=== PATIENT | female | born 2000 | race Caucasian/White ===

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

== ENCOUNTER 2021-01-18 20:33 | Emergency (ER) | payer OTHER, SELFPAY ==
--- NOTE | 2021-01-18 20:44 | XR_ITS ---
PROCEDURE INFORMATION: Exam: XR Right Knee Exam date and time: 01/18/2021 8:44 PM Age: 20 years old Clinical indication: Injury or trauma; Fall; Blunt trauma; Patient HX: Right knee pain; Additional info: Fall around noon today TECHNIQUE: Imaging protocol: XR Right knee. Views: 3 views. COMPARISON: CR [id number] KNEE-LIMITED 2 VIEWS-RT 05/27/2014 11:20 PM FINDINGS: Bones/joints: Normal. Soft tissues: Normal. IMPRESSION: No acute findings.
[2021-01-18 20:50] VITALS: RESP 18; TEMP 36.9; O2SAT 99; BMI 38.0
--- NOTE | 2021-01-18 21:05 | HMH.EDUTC ---
[facility] [place] Disposition Clinical Impression: Knee sprain Qualifiers: Encounter type: initial encounter Involved ligament of knee: other ligament Laterality: right Qualified Code(s): S83.8X1A - Sprain of other specified parts of right knee, initial encounter Disposition: Home, Self-Care Condition on Discharge: Good Instructions: How To Perform RICE (Rest, Ice, Compress, Elevate) Additional Instructions: *weight bearing as tolerated *RICE, Rest the extremity, Ice 15-20 minutes 3-4 times daily, Compress- wear the herman wrap as discussed as much as possible to help reduce swelling and pain, Elevate the extremity when at rest *Herman wrap/Knee immobilizer is for support and help control swelling, use it except in the shower. Be sure that is not to tight but not to loose either *Elevate when resting *Ibuprofen every 6-8 hours as needed for pain an inflammation. If need something more can take Tylenol in between doses of Ibuprofen to help Immediately follow up with your family doctor for new or worsening of symptoms, or no noticeable improvement over the next 3-5 days Call back to the [facility] for the official reading of your xray Return if needed Straight to ER if any life threatening symptoms Referrals: Scott Kirkpatrick MD [Primary Care Provider] - As needed Time of Disposition: 21:36 Medical Decision Making - Chandler Inquiry Pt receiving controlled substance: No Chandler was queried for this patient: No Vital Signs: 01/18/21 20:50 01/18/21 21:43 Temperature 98.4 F 98 F Temperature Source Oral Pulse Rate 97 H Respiratory Rate 18 19 Blood Pressure 136/69 02 Sat by Pulse Oximetry 99 Oxygen Delivery Method Room Air - Radiology Data #1 Image(s): Knee Image Reviewed: Yes I have reviewed radiologist's interpretation Preliminary Findings: No Fracture Seen [facility] HPI - General Stated complaint: AO fall 1215 injured R knee Time Seen by Provider: 01/18/21 21:05 Mode of Arrival: Ambulatory Source of Information: Patient Limitations: No Limitations Description of Symptoms (Recalled from Triage Doc. by RN): Right knee pain due to fall around noon HEENT Symptoms (Recalled from RN notes): No Resp Symptoms (Recalled from RN notes): No Skin Symptoms (Recalled from RN notes): No MS Symptoms (Recalled from RN notes): Yes Functional Status (Recalled from RN notes): na - History of Present Illness Provider Complaint: Patient state that she was at the [employer] and the side walk was broke off and she didnt see it and as she stepped down she fell and landed in her right knee State that she fell around noon today and she has been having pain ever since States that she has been able to walk on it but hurts with certain ways she moves it - Related Data Home Medications Medication Instructions Recorded Confirmed norgestimate-ethinyl estradioL 1 each PO DAILY 10/10/20 10/10/20 [Shawanda 0.25-0.035 mg Tablet] Allergies Allergy/AdvReac Type Severity Reaction Status Date / Time acetaminophen [From Percocet] AdvReac Gastrointestinal Verified 07/19/19 10:50 Upset escitalopram [From Lexapro] AdvReac Verified 07/19/19 10:50 oxycodone [From Percocet] AdvReac Gastrointestinal Verified 07/19/19 10:50 Upset - Worker's Comp Is this a Worker's Comp case?: No [facility] History - Hepatitis A Screen Drug use history?: No High risk sexual behaviors?: No History of sexually transmitted infection?: No Currently employed?: No Childcare worker?: No Do you have indoor plumbing?: Yes Do you have electricity?: Yes Attestation statement:: This patient has been screened for Hepatitis A risk factors. I have reviewed the patient's past medical history: Yes Medical History: Reports:: Depression Comment: fatty liver, psod Laterality Cases: Bilateral: Other Other Surgeries: Yes: No Previous Surgery. No: Comment: - Social History Smoking Status: Never smoker Alcohol Intake: never Substance Use Type: denies use Occup
[2021-01-18 21:43] VITALS: BP 136/69; PULSE 97; RESP 19; TEMP 36.6
== END 2021-01-18 21:43 | disposition home or self-care (01) ==
PROVIDERS: Emergency Provider Nurse Practitioner; PCP Family Medicine
DX: S83.8X1A Sprain of other specified parts of right knee, initial encounter (principal); W01.0XXA Fall on same level from slipping, tripping and stumbling without subsequent striking against object, initial encounter; Y92.480 Sidewalk as the place of occurrence of the external cause; F33.1 Major depressive disorder, recurrent, moderate; Z88.5 Allergy status to narcotic agent
CPT/HCPCS: 29505; 73562; 99202; G0463

== ENCOUNTER 2021-06-25 15:24 | Emergency (ER) | payer OTHER, SELFPAY ==
[2021-06-25 16:10] VITALS: BP 144/89; PULSE 84; RESP 21; TEMP 37.1; O2SAT 100; BMI 38.9
--- NOTE | 2021-06-25 16:43 | HMH.EDUTC ---
[facility] [place] Clinical Impression: Sinusitis Qualifiers: Sinusitis location: unspecified location Chronicity: unspecified Qualified Code(s): J32.9 - Chronic sinusitis, unspecified Disposition: Home, Self-Care Condition on Discharge: Good Instructions: Sinusitis, DI for Sinusitis, Nausea and Vomiting-Adult, Diarrhea Additional Instructions: *Monitor Temp, Over the counter Motrin or Tylenol as directed/as needed Tylenol every 4 hours and Motrin every 6 hours (as long as your family doctor has told you that you can take it) for fever or pain. and straight to ER if unable to lower temp less than 101.0 after medication given *Warm salt water gargles may help to soothe the throat *Throat Lozenges *Warm fluids like tea with honey may help to soothe the throat *Sleep elevated *Humidifier/Vaporizer Drink extra fluids with and between meals. If you have difficulty drinking, try very small amounts of water or suck on ice chips. ? Avoid fruit juices, as these do not replace minerals and can actually increase diarrhea. ? Children and adults can use sports drinks to replenish electrolytes. Younger children and infants should use products formulated for children, like oral rehydration solutions. ? Eat food in small amounts and let your stomach recover. ? Get lots of rest. You may feel tired or weak. ? No greasy or fried foods for the next 24-48 hours BRAT diet Bananas Rice Apples and [place] ? Make sure to drink plenty of liquids ? Return if needed ? Straight to ER if any life threatening symptoms ? Zofran as prescribed ? Follow up with family doctor in the next 48-72 hours if no improvement or any worsening of symptoms Follow up IMMEDIATELY for new or worsening symptoms or no Noticeable improvement over the next 48-72 hours. 911 for difficulty breathing or swallowing You were tested for today for COVID19 your test result should be back in the next 24-48 hours, you was given handout on how to log onto the [facility] portal to get your results if you have trouble logging on you may call the [facility] You was given a handout with instructions for Self Quarantine and Self isolation for while you wait on test results and what to do if they are positive If you are positive the Health Dept will be contacting you also Make sure to take your Vitamins Vit. C Vit D and Zinc if you can take them Prescriptions: Amoxicillin/Potassium Clav [Augmentin 875-125 Tablet] 1 tab PO Q12H 7 Days #14 tab Transmission Status: Pending to [facility] Fluticasone Propionate [Flonase 50mcg nasal spray 16gm] 1 spr NS DAILY #1 each Transmission Status: Pending to [facility] Ondansetron [Zofran 4mg ODT] 4 mg PO TIDP PRN #10 tab PRN Reason: Nausea Transmission Status: Pending to [facility] Referrals: Scott Kirkpatrick MD [Primary Care Provider] - As needed Forms: Work/School Release Time of Disposition: 16:55 Medical Decision Making - Chandler Inquiry Pt receiving controlled substance: No Chandler was queried for this patient: No Vital Signs: 06/25/21 16:10 Temperature 98.8 F Temperature Source Oral Pulse Rate [Right Brachial] 84 Respiratory Rate 21 Blood Pressure [Right Arm] 144/89 H Blood Pressure Mean [Right Arm] 107 Blood Pressure Source [Right Arm] Automatic Cuff Blood Pressure Position [Right Arm] Sitting 02 Sat by Pulse Oximetry 100 Oxygen Delivery Method Room Air Orders (Tests/Meds): ORDERS Category Date Time Status Covid-19 Nasal PCR ([facility]) Routine Lab 06/25/21 16:35 [place]dered [facility] [place] - General Stated complaint: covid test, weak, V/D, GRIFFITH clarence Time Seen by Provider: 06/25/21 16:43 Mode of Arrival: Ambulatory Source of Information: Patient Limitations: No Limitations Description of Symptoms (Recalled from Triage Doc. by RN): PATIENT C/O NAUSEA, HEADACHE, FATIGUE, DIARRHEA BODY ACHES AND VOMITING X 2 WEEKS HEENT Symptoms (Recalled from RN notes): Yes Resp Symptoms (Recalled from RN notes): No Skin
[2021-06-25 17:06] VITALS: BP 144/89; PULSE 84; RESP 21; TEMP 37.1; O2SAT 100
== END 2021-06-25 17:07 | disposition home or self-care (01) ==
PROVIDERS: Emergency Provider Nurse Practitioner; PCP Family Medicine
DX: Z20.822 Contact with and (suspected) exposure to COVID-19 (principal)
CPT/HCPCS: 99202; C9803; G0463; U0003; U0005

== ENCOUNTER → 2021-09-09 16:56 | Outpatient (CLI) | payer OTHER, SELFPAY | PROVIDERS: Visit Provider Nurse Practitioner Family | DX: Z20.822 Contact with and (suspected) exposure to COVID-19 (principal) | CPT/HCPCS: C9803; U0003; U0005 ==

== ENCOUNTER → 2021-09-16 14:08 | Outpatient (CLI) | payer OTHER, SELFPAY | PROVIDERS: Visit Provider Nurse Practitioner Family | DX: Z20.822 Contact with and (suspected) exposure to COVID-19 (principal) | CPT/HCPCS: C9803; U0003; U0005 ==

== ENCOUNTER → 2021-09-25 13:06 | Outpatient (CLI) | payer OTHER, SELFPAY | PROVIDERS: Visit Provider Nurse Practitioner | DX: Z20.822 Contact with and (suspected) exposure to COVID-19 (principal) | CPT/HCPCS: C9803; U0003; U0005 ==

== ENCOUNTER → 2021-09-27 14:08 | Outpatient (CLI) | payer OTHER, SELFPAY | PROVIDERS: Visit Provider Nurse Practitioner | DX: U07.1 COVID-19 (principal) | CPT/HCPCS: C9803; U0003; U0005 ==

== ENCOUNTER → 2021-12-27 07:44 | Outpatient (CLI) | payer OTHER, SELFPAY | PROVIDERS: Visit Provider Obstetrics & Gynecology | DX: Z34.90 Encounter for supervision of normal pregnancy, unspecified, unspecified trimester (principal); N39.0 Urinary tract infection, site not specified | CPT/HCPCS: 87086 ==

== ENCOUNTER → 2022-01-15 12:52 | Outpatient (CLI) | payer OTHER, SELFPAY ==
--- NOTE | 2022-01-15 12:52 | US_ITS ---
FINAL REPORT CLINICAL HISTORY: US OB COMPLETE 20wk+ Anatomy Scan; obesity FINDINGS: There is a single live intrauterine gestation. Presentation is breech. Placenta is fundal, high, grade 1. movement is noted. Three-vessel cord with satisfactory umbilical cord insertion. Four-chamber heart is noted. Chest and diaphragm are unremarkable. ABDOMEN: Both kidneys are unremarkable. Stomach is unremarkable. SPINE: No anomalies identified. AMNIOTIC FLUID: Appropriate amount. MEASUREMENTS: ULTRASOUND AGE: 20 weeks 2 days. GESTATION AGE: 20 weeks 3 days. ESTIMATED WEIGHT: 344 g GROWTH PERCENTILE: 30% BPD: 4.7 cm corresponding with 20 weeks 2 days. OFD: 6.2 cm corresponding with 20 weeks 6 days. HC: 17.3 cm corresponding with 19 weeks 6 days. AC: 15.1 cm corresponding with 20 weeks 3 days. FL: 3.3 cm corresponding with 20 weeks 3 days. CEREBELLUM: 2.0 cm corresponding with 20 weeks 4 days. HUMERUS: 3.2 cm corresponding with 20 weeks 6 days. NUCH FOLD: 1.8 mm HC/AC: 1.14 CI: 75% FL/BPD: 71% FL/AC: 22% IMPRESSION: Single living IUP with an ultrasound age of 20 weeks 2 days. No gross anomalies noted. Reviewed, Interpreted and Dictated by Jeff Fisher III, MD Transcribed by Julia Bustillo Authenticated by Jeff Fisher III, MD on 01/15/2022 03:25:41 PM [facility]
== END ==
PROVIDERS: Visit Provider Obstetrics & Gynecology
DX: Z36.0 Encounter for antenatal screening for chromosomal anomalies (principal)
CPT/HCPCS: 76811

== ENCOUNTER → 2022-02-01 13:07 | Outpatient (CLI) | payer OTHER, SELFPAY ==
[2022-02-01 14:35] LABS: Chloride 106 mmol/L (98-107); Potassium 4.1 mmoL/L (3.5-5.1); Sodium 136 mmol/L (136-145)
[2022-02-01 14:37] LABS: Alanine Aminotransferase 36 U/L (12-78); Aspartate Amino Transferase 28 U/L (14-36); Blood Urea Nitrogen 4 mg/dl (7-17); Estimated Glomerular Filt Rate 157 ml/min (>60); GFR (African American) 190 ML/MIN (>60)
[2022-02-01 14:38] LABS: Albumin Level 3.6 g/dl (3.5-5.0); Albumin/Globulin Ratio 1.2 (1.1-1.8); Alkaline Phosphatase 103 U/L (38-126); Anion Gap 13.1 mEq/L (5-15); Bilirubin,Total 0.9 mg/dl (0.2-1.3); Calcium 9.5 mg/dl (8.4-10.2); Carbon Dioxide 21 mmol/L (22.0-30.0); Globulin 2.9 g/dL (1.3-3.2); Glucose 82 mg/dl (74-100); Total Protein,Serum 6.5 g/dl (6.3-8.2)
== END ==
PROVIDERS: Visit Provider Obstetrics & Gynecology
DX: Z34.90 Encounter for supervision of normal pregnancy, unspecified, unspecified trimester (principal)
CPT/HCPCS: 36415; 80053

== ENCOUNTER → 2022-03-11 11:22 | Outpatient (CLI) | payer OTHER, SELFPAY ==
[2022-03-11 11:46] LABS: Basophils # 0.1 K/mm3 (0-0.2); Eosinophils # 0.1 K/mm3 (0.0-0.4); Eosinophils % 0.7 % (0.1-12.0); Hematocrit 39.5 % (37.0-47.0); Hemoglobin 12.7 g/dL (12.2-16.2); Lymphocytes # 2.1 K/mm3 (0.7-4.5); Mean Corpuscular Hemoglobin 28.7 pg (27.0-31.2); Mean Corpuscular Volume 89.6 fl (81-99); Mean Platelet Volume 9.2 fl (7.4-10.4); Monocytes # 0.4 K/mm3 (0.1-1.0); Monocytes % 3.1 % (1.7-9.3); Neutrophils % 77.3 % (37.0-80.0); Platelet Count 234 K/mm3 (142-424); Red Blood Count 4.42 M/mm3 (4.20-5.40); Red Cell Distribution Width 14.4 % (11.5-17.5); White Blood Count 11.7 K/mm3 (4.5-13.0)
[2022-03-11 11:51] LABS: Glucose,Fasting 108 mg/dl (74-100)
[2022-03-11 13:17] LABS: Glucose 1 Hour 166 mg/dL (74-100)
== END ==
PROVIDERS: Visit Provider Obstetrics & Gynecology
DX: Z34.90 Encounter for supervision of normal pregnancy, unspecified, unspecified trimester (principal)
CPT/HCPCS: 36415; 82951; 85025

== ENCOUNTER → 2022-03-13 11:48 | Outpatient (CLI) | payer OTHER, SELFPAY ==
[2022-03-13 12:22] LABS: Glucose,Fasting 97 mg/dl (74-100)
[2022-03-13 13:32] LABS: Glucose 1 Hour 174 mg/dL (74-100)
[2022-03-13 14:51] LABS: Glucose 2 Hour 153 mg/dL (74-100)
[2022-03-13 16:22] LABS: Glucose 3 Hour 109 mg/dL (74-100)
== END ==
PROVIDERS: Visit Provider Obstetrics & Gynecology
DX: R73.09 Other abnormal glucose (principal)
CPT/HCPCS: 36415; 82951

== ENCOUNTER → 2022-04-01 12:54 | Outpatient (CLI) | payer OTHER, SELFPAY ==
--- NOTE | 2022-04-01 12:54 | US_ITS ---
FINAL REPORT CLINICAL HISTORY: sga; BPP is 8 FINDINGS: There is a single live intrauterine gestation. Presentation is cephalic. Placenta is fundal, grade 2. movement and practice breathing is seen. Heart rate is 153 beats per minute. AMNIOTIC FLUID: Appropriate amount. EVERT: 10.1 cm MEASUREMENTS: ULTRASOUND AGE: 31 weeks 0 days. GESTATION AGE: 31 weeks 2 days. ESTIMATED WEIGHT: 1615 g GROWTH PERCENTILE: 20% BPD: 7.8 cm corresponding with 31 weeks 1 days. OFD: 10 cm corresponding with 31 weeks 1 days. HC: 28.2 cm corresponding with 31 weeks 0 days. AC: 26.1 cm corresponding with 30 weeks 2 days. FL: 6 cm corresponding with 31 weeks 2 days. HC/AC: 1.08 CI: 77% FL/BPD: 77% FL/AC: 23% IMPRESSION: Single living IUP with an ultrasound age of 31 weeks 0 days. EVERT of 10.1 cm Reviewed, Interpreted and Dictated by Jeff Fisher III, MD Transcribed by Julia Bustillo Authenticated and [facility]
== END ==
PROVIDERS: Visit Provider Obstetrics & Gynecology
DX: O36.5990 Maternal care for other known or suspected poor fetal growth, unspecified trimester, not applicable or unspecified (principal)
CPT/HCPCS: 76816; 76819

== ENCOUNTER 2022-04-03 13:20 | Emergency (ER) | payer OTHER, SELFPAY ==
--- NOTE | 2022-04-03 13:56 | HMH.EDUTC ---
[facility] [place] Clinical Impression: Right foot pain Disposition: Home, Self-Care Condition on Discharge: Good Instructions: Managing Symptoms of , DI for Foot Pain Additional Instructions: Rest the extremity, Elevate the extremity as tolerated while you are resting. Take tylenol for pain. I sent in a prescription to your pharmacy. Follow up with Dr. Hoyt (orthopedics). I put in a referral but you need to call his office and schedule an appointment. Follow up with your regular doctor. Follow up with your research & analytics manager doctor. GO TO THE ER FOR ANY WORSENING SYMPTOMS Referrals: Provider,Referral, MD [Primary Care Provider] - Time of Disposition: 14:30 Medical Decision Making - Medical Records Medical records reviewed: No: I reviewed the patient's medical records. - Chandler Inquiry Pt receiving controlled substance: No Vital Signs: 04/03/22 14:04 04/03/22 14:34 Temperature 97.7 F 97.7 F Temperature Source Oral Oral Pulse Rate 74 Pulse Rate [Left Radial] 77 Respiratory Rate 16 17 Blood Pressure 121/79 Blood Pressure [Right Arm] 127/85 Blood Pressure Mean [Right Arm] 99 02 Sat by Pulse Oximetry 97 Oxygen Delivery Method Room Air Room Air - Lab Data Lab results reviewed: Yes: I reviewed the patient's lab results. [facility] [place] - General Stated complaint: Pain in rt foot Time Seen by Provider: 04/03/22 14:20 - History of Present Illness Provider Complaint: She states that she has been having right foot pain for the past 3 days. She denies any known injury. She is . - Related Data Home Medications Medication Instructions Recorded Confirmed prenat.vits,kenyatta,kew-asho-rijia 1 tab PO DAILY 12/27/21 03/25/22 Allergies Allergy/AdvReac Type Severity Reaction Status Date / Time Fish Containing Products Allergy Severe Hives Verified 03/25/22 13:45 shellfish derived Allergy Mouth Verified 03/25/22 13:45 irritation acetaminophen [From Percocet] AdvReac Gastrointestinal Verified 03/25/22 13:45 Upset escitalopram [From Lexapro] AdvReac Verified 03/25/22 13:45 oxycodone [From Percocet] AdvReac Gastrointestinal Verified 03/25/22 13:45 Upset [facility] History - Hepatitis A Screen Attestation statement:: This patient has been screened for Hepatitis A risk factors. I have reviewed the patient's past medical history: Yes Medical History: Reports:: Depression Comment: Nonalcoholic fatty liver disease, PCOS. lactose intolerant Laterality Cases: Bilateral: Other Other Surgeries: Yes: No Previous Surgery. No: Comment: No previous surgeries - Social History Smoking Status: Never smoker Alcohol Intake: never Substance Use Type: denies use Occupational Status: unemployed Housing: house Household Members: family, children - Psychiatric History Pschychiatric History:: Reports:: Depression Family Hx:: Diabetes, Hypertension, Heart Attack, Coronary Artery Disease, Cancer ROS Obtained: Yes All systems reviewed & no additional complaints - Constitutional Constitutional: Denies chills, Denies fever(s) - Eyes Eyes: Denies eye discharge - ENT Ears, Nose, Mouth, and Throat: Denies dizziness, Denies otalgia, Denies sore throat - Cardiovascular Cardiovascular: Denies chest pain - Musculoskeletal Musculoskeletal: Reports as per HPI - Integumentary/Breasts Skin/Breast: Denies redness, Denies rash, Denies wounds - Neurologic Neurologic: Denies tingling/numbness/burning sensations Physical Exam - General General appearance: alert, in no apparent distress - Head Head exam: atraumatic, normocephalic, normal inspection - Eye Eye exam: Present: normal appearance, PERRL, EOMI - ENT ENT exam: Present: normal exam, normal oropharynx, mucous membranes moist, TM's normal bilaterally, normal external ear exam - Neck Neck exam: Present: normal inspection, full ROM, trachea midline. Absent: meningismus, lymphadenopathy - Chest
[2022-04-03 14:04] VITALS: BP 127/85; PULSE 77; RESP 16; TEMP 36.5; O2SAT 97; BMI 45.1
[2022-04-03 14:34] VITALS: BP 121/79; PULSE 74; RESP 17; TEMP 36.5; O2SAT 98
== END 2022-04-03 14:37 | disposition home or self-care (01) ==
PROVIDERS: Emergency Provider Nurse Practitioner Family
DX: M79.671 Pain in right foot (principal)
CPT/HCPCS: 99212; G0463

== ENCOUNTER → 2022-05-15 05:58 | Outpatient (CLI) | payer OTHER, SELFPAY | PROVIDERS: Visit Provider Obstetrics & Gynecology | DX: Z34.90 Encounter for supervision of normal pregnancy, unspecified, unspecified trimester (principal); Z3A.34 34 weeks gestation of pregnancy | CPT/HCPCS: 86403 ==

== ENCOUNTER 2022-05-24 10:21 | Inpatient (IN) | payer OTHER, SELFPAY ==
[2022-05-24 09:24] VITALS: BMI 47.9
[2022-05-24 09:52] LABS: Microscopic, Urine URINE MICROSCOPIC (MICROSCOPIC)
[2022-05-24 09:56] LABS: Appearance,Urine SL CLOUDY (Clear); Blood, Urine TRACE-I (Negative); Color,Urine AMBER (Yellow); Glucose,Urine (UA) Negative (Negative); Ketones,Urine TRACE (Negative); Leukocyte Esterase,Urine 1+ (Negative); Nitrate,Urine Negative (Negative); Protein,Urine 1+ (Negative); Specific Gravity, Urine >= 1.030 (1.005-1.030)
[2022-05-24 09:58] VITALS: BP 131/88; PULSE 117; RESP 20; TEMP 36.7; O2SAT 95; BMI 47.9
[2022-05-24 10:04] LABS: Fetal Membrane Rupture (Rapid) Positive (Negative)
[2022-05-24 10:14] LABS: Barbiturates Screen,Urine Negative ng/ml (<200)
[2022-05-24 10:15] LABS: Benzodiazepines Screen,Urine Negative ng/ml (<200)
[2022-05-24 10:16] LABS: Amphetamine/Metha Screen,Urine Negative ng/ml (<1000); Bilirubin,Urine 1+ (Negative); Cannabinoid Screen,Urine Negative ng/ml (<50)
[2022-05-24 10:17] LABS: Cocaine Screen,Urine Negative ng/ml (<300); Methadone Screen,Urine Negative ng/ml (<300)
[2022-05-24 10:18] LABS: Opiate Screen,Urine Negative ng/ml (<300)
[2022-05-24 10:19] LABS: Phencyclidine Screen,Urine Negative ng/ml (<25)
[2022-05-24 10:23] LABS: Bacteria,Urine 2+ /lpf; Mucus,Urine 2+ /lpf; RBC,Urine Occasional #/hpf (0-3)
[2022-05-24 10:56] LABS: Coronavirus 19, PCR Not Detected (NotDetected); Influenza A, PCR Not Detected (NotDetected); Influenza B, PCR Not Detected (NotDetected)
[2022-05-24 11:07] LABS: Basophils # 0.1 K/mm3 (0-0.2); Basophils % 0.3 % (0.1-2.0); Eosinophils % 0.3 % (0.1-12.0); Hemoglobin 11.9 g/dL (12.2-16.2); Lymphocytes % 13.1 % (10-50); Mean Corpuscular HGB Conc 33.9 g/dL (31.8-35.4); Mean Corpuscular Hemoglobin 28.4 pg (27.0-31.2); Mean Corpuscular Volume 83.7 fl (81-99); Mean Platelet Volume 9.6 fl (7.4-10.4); Monocytes # 0.7 K/mm3 (0.1-1.0); Monocytes % 4.5 % (1.7-9.3); Neutrophils # 12.6 K/mm3 (1.8-7.8); Neutrophils % 81.8 % (37.0-80.0); Platelet Count 232 K/mm3 (142-424); Red Blood Count 4.18 M/mm3 (4.20-5.40); Red Cell Distribution Width 15.2 % (11.5-17.5); White Blood Count 15.3 K/mm3 (4.5-13.0)
[2022-05-24 11:18] LABS: MANUAL DIFFERENTIAL MANUAL DIFFERENTIAL (MANUAL DIFF)
--- NOTE | 2022-05-24 12:06 | EXP.LABOR.NO ---
Labor Note Subjective: Date: 05/24/22 Time: 12:06 regular contraction Objective: NST:: Reactive Contractions:: every 2-3 minutes Cervical Dilation:: 2 Effacement:: 75% Station: -1 Membranes: spontaneously ruptured Fetus: Monitoring?: Yes monitoring type:: Internal and External Comment:: I inserted an IUPC Assessment: Labor progressing?: Yes Cephalopelvic disproportion?: No All Active Problems (Updated 05/23/22 @ 14:31 by Ananya Ahmadi DO) Morbid obesity with BMI of 40.0-44.9, adult (Chronic) PCOS (polycystic ovarian syndrome) (Acute) Non-alcoholic fatty liver disease (Chronic) History of depression, currently (Chronic) (Acute) Plan: Anesthesia for epidural?: Yes Continue to labor down?: Yes Plan for ?: No Continue to monitor?: Yes Start pushing?: No Continue pushing?: No Additional information:: I inserted an IUPC. She has changed her cervix. She has had a previous 7 pound baby.
--- NOTE | 2022-05-24 12:07 | EXP.HP ---
History of Present Illness *Admission Date: 05/24/22 *Reason for visit:: Term , spontaneous rupture membranes *History of present illness: She is a 21-year-old 2 para 1 at 38 and 6 weeks gestational age. She spontaneously ruptured her membranes at home at about 7:00 this morning. She is had a previous vaginal delivery of a 7 pound baby. [facility] Social History Smoking Status: Never smoker alcohol intake: never substance use type: denies use current occupational status: employed Travel in the last 8 weeks: None household members: family and children housing: house Review of Systems Review of Systems Review of systems:: pertinent systems reviewed and negative unless documented below Meds Home Medications and Allergies Home Medications Medication Instructions Recorded Confirmed Type prenat.vits,kenyatta,[id number] 1 tab PO DAILY Supplement 12/27/21 05/24/22 History New Prescriptions to Start Prescriptions: Allergies Allergy/AdvReac Type Severity Reaction Status Date / Time Fish Containing Products Allergy Severe Hives Verified 05/23/22 13:16 shellfish derived Allergy Mouth Verified 05/23/22 13:16 irritation acetaminophen [From Percocet] AdvReac Gastrointestinal Verified 05/23/22 13:16 Upset escitalopram [From Lexapro] AdvReac Verified 05/23/22 13:16 oxycodone [From Percocet] AdvReac Gastrointestinal Verified 05/23/22 13:16 Upset Exam Data for Last 24 hours Vital signs and Labs for Last 24 Hours: Temp Pulse Resp BP Pulse Ox 98.1 F 117 H 20 131/88 95 05/24/22 09:58 05/24/22 09:58 05/24/22 09:58 05/24/22 09:58 05/24/22 09:58 Laboratory Results - last 24 hr 05/24/22 09:24: Urine Color Tish, Urine Appearance Sl cloudy, Urine pH 6.0, Ur Specific [place] >= 1.030, Urine Protein 1+, Urine Glucose (UA) Negative, Urine Ketones Trace, Urine Blood Trace-i, Urine Nitrate Negative, Urine Bilirubin 1+ A, Urine Urobilinogen 1.0, Ur Leukocyte Esterase 1+ A, Urine RBC Occasional, Urine WBC 3-5, Ur Squamous Epith Cells 3-5, Urine Bacteria 2+, Urine Mucus 2+ 05/24/22 09:24: Membrane Rupture Positive A 05/24/22 09:24: Urine Opiates Screen Negative, Urine Methadone Screen Negative, Ur Barbituates Screen Negative, Ur Phencyclidine Scrn Negative, Ur Amphetamines Screen Negative, U Benzodiazepines Scrn Negative, Urine Cocaine Screen Negative, U Marijuana (THC) Screen Negative 05/24/22 10:50: WBC 15.3 H, RBC 4.18 L, Hgb 11.9 L, Hct 35.0 L, MCV 83.7, MCH 28.4, MCHC 33.9, RDW 15.2, Plt Count 232, MPV 9.6, Neut % (Auto) 81.8 H, Lymph % (Auto) 13.1, [place] % (Auto) 4.5, Eos % (Auto) 0.3, Baso % (Auto) 0.3, Neut # (Auto) 12.6 H, Lymph # (Auto) 2.0, Young # (Auto) 0.7, Eos # (Auto) 0.0, Baso # (Auto) 0.1 05/24/22 10:50: SARS-CoV-2 (PCR) Not detected, Influenza A Untype (PCR) Not detected, Influenza Type B (PCR) Not detected 05/24/22 10:50: Blood Type O Positive, Antibody Screen Negative I & O for Last 24 hours: Intake & Output 05/22/22 05/23/22 05/24/22 05/25/22 11:59 11:59 11:59 11:59 Weight 271 lb Constitutional Constitutional: no acute distress *Routine HEENT Exam Head: Present normocephalic Eye: Present EOMI and PERRL ENT: Present mucous membranes moist *Routine Neck Exam Neck: Present supple and full ROM *Routine Respiratory Exam Respiratory: Absent accessory muscle use (good air entry bilaterally), wheezes or crackles *Routine Cardiovascular Exam Cardiovascular: Present RRR; Absent murmur *Routine Abdominal Exam Abdominal: Present soft and normoactive bowel sounds; Absent tenderness, rebound, guarding or mass *Routine Rectal Exam Rectal:: deferred *Routine Genitalia Exam Genitalia:: normal female Comment:: Her cervix is 2 cm dilated, 75% and Station -1 *Routine Extremities Exam Extremities: Present full ROM; Absent cyanosis, edema or calf tenderness *Routine Skin Exam Skin: Present intact (good c
[2022-05-24 12:29] LABS: Eosinophils % 1 % (0-3); Lymphocytes % 11 % (10-50); Monocytes % 3 % (2-9); Neutrophils % 84 % (42-76); Platelet Estimate Normal; RBC Morphology Normal; Total Cells Counted 100
--- NOTE | 2022-05-24 13:06 | EXP.ANES.CKL ---
[facility] Social History Smoking Status: Never smoker alcohol intake: never substance use type: denies use current occupational status: employed Travel in the last 8 weeks: None household members: family and children housing: house [facility] Anesthesia Checklist Patient Identification Patient Identification: Arm Band and Verbal (Name & ) Structural Data Admitted From: Inpatient Planned Operative Procedure/s: Labor epidural Consent for Planned Operative Procedure(s) Verified: Yes NPO Status Verified Time NPO: 08:30 Chart Verification Results Verified: CBC Additional verifications Patient : Yes Airway Assessment C-Spine Mobility Assessed: Yes TMJ Mobility Assessed: Yes Dentition: Good Dentition Neurological Assessment Level of Consciousness: Awake Hx Seizures: No Numbness or tingling in extremities: No Anesthesia Plan Anesthesia Risk discussed: Yes Anesthesia Plan: Verified ASA Class: II Anesthesia Type: Epidural
--- NOTE | 2022-05-24 17:49 | P.PCN_ITS ---
Delivery Note Delivery Date:: 05/24/22 Delivery Time:: 17:39 Anesthesia Type: Epidural Was labor medically induced?: No Induction method: none Infant delivered prior to 39 weeks?: Yes Justification for early elective delivery:: Active Labor Infant Gender: Female at 1 minute: 9 at 5 minutes: 9 Delivery Procedure:: She is a 21-year-old 2 para 1 at 38 and 6 weeks gestational age. She came in with ruptured membranes in early labor. She was started on IV oxytocin and under labor epidural she progressed to full dilation. She delivered spontaneously a liveborn female child at 5:39 PM in the afternoon of May 24, 2022. On deliver the head the anterior shoulder delivered easily followed by the rest the 's body atraumatically. The baby was vigorous. The oropharynx and nasopharynx were bulb suction. We allowed the cord to continue to pulsate for approximately 1 minute. The cord was then doubly clamped and cut and the was placed on the mother's abdomen for further care. The nurses assigned Apgars of 9 at 1 minute and 9 at 5 minutes. We then obtained cord blood. She received IV oxytocin using gentle traction on the cord and countertraction on the fundus I was able to easily deliver the placenta intact. It had a normal three-vessel cord. There were no perineal or vaginal lacerations. She has O+ blood, she is well immune and was group B streptococcus negative. She plans to breast-feed. 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 Estimated blood loss was approximately 200 cc. Placental Delivery Description: Spontaneous
[2022-05-25 07:46] LABS: Hematocrit 32.1 % (37.0-47.0)
[2022-05-25 08:07] VITALS: BP 129/78; PULSE 78; RESP 18; TEMP 36.4; O2SAT 99
[2022-05-25 08:46] LABS: Hemoglobin 10.9 g/dL (12.2-16.2)
--- NOTE | 2022-05-25 11:08 | P.PN_ITS ---
Subjective *Date: 05/25/22 *Time: 11:08 Interval history: She continues to do very well. She is eating and drinking and ambulating. Her lochia is normal. Her pain is well controlled. Medical Exam Vital signs and Labs for Last 24 Hours: Temp Pulse Resp BP Pulse Ox 97.5 F L 78 18 129/78 99 05/25/22 08:07 05/25/22 08:07 05/25/22 08:07 05/25/22 08:07 05/25/22 08:07 Laboratory Results - last 24 hr 05/24/22 10:50: WBC 15.3 H, RBC 4.18 L, Hgb 11.9 L, Hct 35.0 L, MCV 83.7, MCH 28.4, MCHC 33.9, RDW 15.2, Plt Count 232, MPV 9.6, Neut % (Auto) 81.8 H, Lymph % (Auto) 13.1, [place] % (Auto) 4.5, Eos % (Auto) 0.3, Baso % (Auto) 0.3, Neut # (Auto) 12.6 H, Lymph # (Auto) 2.0, [place] # (Auto) 0.7, Eos # (Auto) 0.0, Baso # (Auto) 0.1, Total Counted 100, Neutrophils % (Manual) 84 H, Lymphocytes % (Manual) 11, Monocytes % (Manual) 3, Eosinophils % (Manual) 1, Basophils % (Manual) 1.0, Platelet Estimate Normal, RBC Morphology Normal 05/24/22 10:50: SARS-CoV-2 (PCR) Not detected, Influenza A Untype (PCR) Not detected, Influenza Type B (PCR) Not detected 05/24/22 10:50: Blood Type O Positive, Antibody Screen Negative 05/25/22 07:30: Hgb 10.9 L, Hct 32.1 L I & O for Labs for Last 24 Hours: Intake & Output 05/22/22 05/23/22 05/24/22 05/25/22 11:59 11:59 11:59 11:59 Weight 271 lb Microbiology Reports for the Last 24 Hours: Microbiology 05/24/22 09:24 Urine,Clean Catch Urine Culture - Preliminary NO GROWTH AFTER 24 HOURS Head: Present atraumatic Neck: Present normal inspection Respiratory: Present normal respiratory effort Assessment and Plan *Assessment and plan (1) Non-alcoholic fatty liver disease: Status: Chronic Category: Medical Code(s): K76.0 - Fatty (change of) liver, not elsewhere classified (2) Morbid obesity with BMI of 40.0-44.9, adult: Status: Chronic Category: Medical Code(s): E66.01 - Morbid (severe) obesity due to excess calories; Z68.41 - Body mass index [BMI] 40.0-44.9, adult (3) Normal delivery at term: Status: Acute Category: Medical Code(s): O80 - Encounter for full-term uncomplicated delivery Assessment and plan all Dx Assessment and Plan All Dx:: She continues to do very well. We will plan to send her home tomorrow.
[2022-05-25 16:51] VITALS: BP 122/93; PULSE 91; RESP 18; TEMP 36.6; O2SAT 98
[2022-05-26 08:32] VITALS: BP 131/71; PULSE 97; RESP 18; TEMP 36.9; O2SAT 97
--- NOTE | 2022-05-26 09:40 | EXP.DC.SUM ---
General Admission date:: 05/24/22 Discharge date: 05/26/22 HPI HPI HPI: She is a 21-year-old 2 para 1 at 38 and 6 weeks gestational age. She spontaneously ruptured her membranes at home at about 7:00 this morning. She is had a previous vaginal delivery of a 7 pound baby. Hospital Course Hospital Course Hospital Course: She progressed under labor epidural to full dilation and delivered spontaneously a liveborn female child at 5:39 PM in the evening of May 24, 2022. The baby had Apgars of 9 at 1 minute and 9 at 5 minutes. The baby weighed 6 pounds 12 ounces. She has done well and has remained afebrile without her hospitalization. She is eating and drinking and ambulating. She is bottlefeeding. She has O+ blood, she is rubella immune and was group B streptococcus negative. Her severity of illness coordinator Dr. Ann. She will be discharged home to follow-up with Dr. Ahmadi in approximately 2 weeks time. She will continue with her vitamins and iron. She is taking [id number] analgesics. Her condition on discharge is stable and improved. Exam Data for Last 24 hours Vital signs and Labs for Last 24 Hours: Temp Pulse Resp BP Pulse Ox 98.4 F 97 H 18 131/71 97 05/26/22 08:32 05/26/22 08:32 05/26/22 08:32 05/26/22 08:32 05/26/22 08:32 I & O for Last 24 hours: Intake & Output 05/23/22 05/24/22 05/25/22 05/26/22 11:59 11:59 11:59 11:59 Weight 271 lb Microbiology Reports for the Last 24 Hours: Microbiology 05/24/22 09:24 Urine,Clean Catch Urine Culture - Preliminary Constitutional Constitutional: no acute distress *Routine HEENT Exam Head: Present normocephalic *Routine Respiratory Exam Respiratory: Present normal respiratory effort Results Data Completed and Pending Labs on day of discharge: Preliminary micro results at discharge 05/24/22 09:24 Urine Culture - Preliminary Urine,Clean Catch DS: Diagnosis Discharge Diagnosis (1) Non-alcoholic fatty liver disease: Status: Chronic (2) Morbid obesity with BMI of 40.0-44.9, adult: Status: Chronic (3) Normal delivery at term: Status: Acute Meds Home Medications and Allergies Home Medications Medication Instructions Recorded Confirmed Type prenat.vits,kenyatta,[id number] 1 tab PO DAILY Supplement 12/27/21 05/24/22 History New Prescriptions to Start Prescriptions: Allergies Allergy/AdvReac Type Severity Reaction Status Date / Time Fish Containing Products Allergy Severe Hives Verified 05/23/22 13:16 shellfish derived Allergy Mouth Verified 05/23/22 13:16 irritation acetaminophen [From Percocet] AdvReac Gastrointestinal Verified 05/23/22 13:16 Upset escitalopram [From Lexapro] AdvReac Verified 05/23/22 13:16 oxycodone [From Percocet] AdvReac Gastrointestinal Verified 05/23/22 13:16 Upset Discharge Plan Disposition Patient Disposition: Home, Self-Care Discharge Order Discharge Orders: Discharge Order (Routine); Ordered 05/26/22 Ordered By: Matias Jansen Follow up Plan Follow up with: Ananya Ahmadi DO [Staff Physician] - Enter time for follow up Prescriptions/Medication Reconciliation: Continued prenat.vits,kenyatta,[id number] Tablet 1 tab PO DAILY Problem Reconciliation Problems Reviewed?: Yes Patient Discharge Instructions ACTIVITY: No heavy lifting DIET: continue same diet Additional Instructions: Nothing in the vagina for 6 weeks No tub baths until released Drink plenty of fluids Patient Instructions: Depression, Hemorrhage, DI for Labor and Delivery, Vaginal , DI for Pre-eclampsia, [facility] Post Discharge Instructions, Preventing the Spread of Coronavirus Discharge Instructions Providers Primary Care Provider: Provider,Referral Admit Provider: Matias Jansen Attending Provider: Ananya Ahmadi
== END 2022-05-26 11:05 | disposition home or self-care (01) | DRG 807 ==
LOC: OBOUT 10:22 → OB 10:22
PROVIDERS: Admitting Provider Nurse Practitioner Obstetrics & Gynecology; Visit Provider Obstetrics & Gynecology
DX: O99.284 Endocrine, nutritional and metabolic diseases complicating childbirth (principal); Z37.0 Single live birth; E28.2 Polycystic ovarian syndrome; Z3A.38 38 weeks gestation of pregnancy; K76.0 Fatty (change of) liver, not elsewhere classified; O99.345 Other mental disorders complicating the puerperium; F53.0 Postpartum depression
CPT/HCPCS: 59409; 59025; 80305; 81001; 84112; 85007; 85014; 85018; 85025; 86850; 87086; 94761; C1758; C9803; G0283; U0003; U0005

== ENCOUNTER 2023-02-09 15:19 | Emergency (ER) | payer OTHER, SELFPAY ==
[2023-02-09 15:30] VITALS: BP 144/80; PULSE 90; RESP 17; TEMP 36.8; O2SAT 98; BMI 46.7
[2023-02-09 15:37] LABS: Apearance,Urine Cloudy (Clear); Color,Urine Red (Yellow); Specific Gravity, Urine 1.005 (1.005-1.030)
[2023-02-09 15:38] LABS: Bilirubin,Urine 1+ (Negative); Blood, Urine 2+ (Negative); Glucose,Urine (UA) 250 (Negative); Ketones,Urine 15 (Negative); Protein,Urine 2+ (Negative); UTC Leukocyte Esterase,Urine 3+ (Negative); UTC Nitrate,Urine Positive (Negative); Urobilinogen,Urine 4 EU/dl (0.2)
--- NOTE | 2023-02-09 15:38 | EXP.UTC ---
Discharge Plan Disposition Patient Disposition: Home, Self-Care Condition: Good Prescriptions Prescriptions: New cefdinir 300 mg capsule 300 mg PO BID Qty: 20 0RF No Action ParaGard T 380A 380 square mm intrauterine device 1 device intrauterine ONCE Qty: 1 0RF ParaGard T 380A 380 square mm intrauterine device 1 device intrauterine ONCE citalopram 10 mg tablet 10 mg PO DAILY Rx Instructions: Take 1 tablet by mouth once daily Referrals Follow up/Referrals: Provider,Referral, MD [Primary Care Provider] - See instructions Activity Restrictions/Add. Instructions Additional Instructions/Restrictions: *Increase fluids. Water not Soda or Tea *Start antibiotic immediately and be sure to take as ordered for the FULL length of time although you should start to see improvement over the next 48 hours Be SURE to follow up anytime for new or worsening symptoms with your family doctor. AND in 48 hours for urine culture results with your family doctor, if you do not have a doctor then you may call back to the [facility] for urine culture results and further treatment. We do recommend that you choose and establish care with a Primary Care Physician. ?AND follow up with them ?in 10-14 days to repeat UA to ensure infection is resolved and blood no longer present *Be sure to let your PCP know that we sent urine cultures from the [facility] so they can follow up to ensure that you area the on the correct antibiotic Call your doctor office and make appointment for 48 hours (2 days from today) ?to follow up and get the results of your urine culture and further treatment Clinical Impressions Clinical Impression: UTI (urinary tract infection) Qualifiers: Urinary tract infection type: site unspecified Hematuria presence: with hematuria Qualified Code(s): N39.0 - Urinary tract infection, site not specified Instructions Patient Instructions: Urinary Tract Infection, DI for Urinary Tract Infection (UTI) Discharge ED Provider: Haley Graham [facility] [place] Stated complaint: poss UTI Mode of Arrival: Ambulatory Source of Information: Patient Limitations: No Limitations Time Seen by Provider: 02/09/23 15:39 Description of Symptoms (Recalled from Triage Doc. by RN): PATIENT C/O FREQUENCY AND BURNING WITH URINATION AND LOWER ABDOMINAL PAIN X 4 DAYS HEENT Symptoms (Recalled from RN notes): No Resp Symptoms (Recalled from RN notes): No Skin Symptoms (Recalled from RN notes): No MS Symptoms (Recalled from RN notes): No Functional Status (Recalled from RN notes): WNL History of Present Illness Provider Complaint: Patient states that on and off for the last 4 days she has been having a pressure like feeling in her lower abdomen and feeling of urgency and frequency along with burning with urination States that she took OTC AZO but it hasnt helped much States today she was still having the pressure like pain and feeling of urgency and frequency so she came in to get it checked Related Data Home Medications Medication Instructions Recorded Confirmed copper 380 square mm intrauterine 1 device intrauterine ONCE 10/23/22 10/23/22 device (ParaGard T 380A) citalopram 10 mg tablet 10 mg PO DAILY PPD 02/09/23 02/09/23 Previous Rx's Medication Instructions Recorded cefdinir 300 mg capsule 300 mg PO BID #20 caps 02/09/23 Allergies Allergy/AdvReac Type Severity Reaction Status Date / Time Fish Containing Products Allergy Severe Hives Verified 10/23/22 13:09 shellfish derived Allergy Mouth Verified 10/23/22 13:09 irritation acetaminophen [From Percocet] AdvReac Gastrointestinal Verified 10/23/22 13:09 Upset escitalopram [From Lexapro] AdvReac Verified 10/23/22 13:09 oxycodone [From Percocet] AdvReac Gastrointestinal Verified 10/23/22 13:09 Upset Worker's Comp Is this a Worker's Comp case?: No [facility] Disclaimer: The information contained in this section may have been updated after the patient was see
[2023-02-09 15:41] VITALS: BP 144/80; PULSE 90; RESP 17; TEMP 36.8; O2SAT 98
== END 2023-02-09 15:56 | disposition home or self-care (01) ==
PROVIDERS: Emergency Provider Nurse Practitioner
DX: N39.0 Urinary tract infection, site not specified (principal); B96.29 Other Escherichia coli [E. coli] as the cause of diseases classified elsewhere; F41.9 Anxiety disorder, unspecified; F32.9 Major depressive disorder, single episode, unspecified
CPT/HCPCS: 81003; 87086; 87088; 87186; 99212; 99214; G0463

== ENCOUNTER 2023-04-06 22:03 | Emergency (ER) | payer OTHER, SELFPAY ==
[2023-04-06 22:05] VITALS: BP 119/64; PULSE 89; RESP 16; TEMP 36.7; O2SAT 97; BMI 41.1
[2023-04-06 22:31] VITALS: BP 119/66; PULSE 75; O2SAT 98
[2023-04-06 22:40] LABS: Microscopic, Urine URINE MICROSCOPIC (MICROSCOPIC)
[2023-04-06 22:43] LABS: Appearance,Urine SL CLOUDY (Clear); Blood, Urine 2+ (Negative); Color,Urine YELLOW (Yellow); Glucose,Urine (UA) Negative (Negative); Ketones,Urine Negative (Negative); Leukocyte Esterase,Urine 2+ (Negative); Nitrate,Urine POSITIVE (Negative); PH,Urine 5.5 (5.0-8.5); Protein,Urine 1+ (Negative); Specific Gravity, Urine >= 1.030 (1.005-1.030); Urobilinogen,Urine 0.2 EU/dl (0.2)
[2023-04-06 22:47] LABS: Urine Pregnancy, HCG Qual. Negative (Negative)
[2023-04-06 22:59] LABS: Bilirubin,Urine 1+ (Negative)
[2023-04-06 23:00] LABS: Bacteria,Urine 1+ /lpf; Squamous Epithelial Cell,Urine Occasional #/hpf (0-5); WBC,Urine 50-100 #/hpf (0-3)
--- NOTE | 2023-04-06 23:21 | PC.NURSE ---
Dr. Barreto at to speak with pt
[2023-04-06 23:51] VITALS: BP 114/74; PULSE 71; RESP 17; TEMP 36.7; O2SAT 98
--- NOTE | 2023-04-07 17:20 | [facility].EDGENADL ---
Discharge Plan Disposition Patient Disposition: Home, Self-Care Prescriptions Prescriptions: No Action ParaGard T 380A 380 square mm intrauterine device 1 device intrauterine ONCE Qty: 1 0RF ParaGard T 380A 380 square mm intrauterine device 1 device intrauterine ONCE citalopram 10 mg tablet 10 mg PO DAILY Rx Instructions: Take 1 tablet by mouth once daily cefdinir 300 mg capsule 300 mg PO BID Qty: 20 0RF Referrals Follow up/Referrals: Provider,Referral, MD [Primary Care Provider] - See instructions Activity Restrictions/Add. Instructions Additional Instructions/Restrictions: Please follow-up with your primary care provider. Please return to the emergency department if you develop any new or worsening symptoms or become concerned for your health. Take antibiotics as prescribed. Please follow-up with your [employer] about your IUD. Clinical Impressions Clinical Impression: UTI (urinary tract infection), Abdominal pain Instructions Patient Instructions: DI for Acute Abdominal Pain Discharge ED Provider: Gurwinder Barreto General Adult HPI General Chief complaint: Abdominal Pain Stated complaint: IUD coming out, abd pain Time Seen by Provider: 04/06/23 22:30 Mode of Arrival: Ambulatory Source of Information: Patient Limitations: No Limitations Description of Symptoms (Recalled from ER Triage Doc. by RN): pt c/o abd pain x 1 week. tonight pt states that her strings of IUD is falling out. pt denies diarrhea. History of Present Illness HPI narrative: Patient reports intermittent lower abdominal pain over the last week or so. Mild in nature. Patient denies urinary symptoms. Patient reports that she can feel the strings from her IUD and is worried that it might be coming out. Denies any vaginal bleeding or discharge. Denies flank pain. Denies history of sexual transmitted infection, reports no concern for STI at this time. Related Data Home Medications Medication Instructions Recorded Confirmed copper 380 square mm intrauterine 1 device intrauterine ONCE 10/23/22 10/23/22 device (ParaGard T 380A) citalopram 10 mg tablet 10 mg PO DAILY PPD 02/09/23 02/09/23 Previous Rx's Medication Instructions Recorded cefdinir 300 mg capsule 300 mg PO BID #20 caps 02/09/23 Allergies Allergy/AdvReac Type Severity Reaction Status Date / Time Fish Containing Products Allergy Severe Hives Verified 10/23/22 13:09 shellfish derived Allergy Mouth Verified 10/23/22 13:09 irritation acetaminophen [From Percocet] AdvReac Gastrointestinal Verified 10/23/22 13:09 Upset escitalopram [From Lexapro] AdvReac Verified 10/23/22 13:09 oxycodone [From Percocet] AdvReac Gastrointestinal Verified 10/23/22 13:09 Upset PFSH PFSH Disclaimer: The information contained in this section may have been updated after the patient was seen, as this information can be updated by other users. Medical History Anxiety Depression Encounter for insertion of ParaGard IUD Inserted 09/25/22 History of depression Non-alcoholic fatty liver disease Non-alcoholic fatty liver disease PCOS (polycystic ovarian syndrome) depression Family History Other Alcoholism Asthma Cancer Coronary artery disease Diabetes FHx: mental illness Heart attack Hyperlipidemia Hypertension Substance abuse Thyroid disorder Social History Smoking Status: Never smoker alcohol intake: never substance use type: denies use current occupational status: employed Travel in the last 8 weeks: None household members: family and children housing: house ROS Obtained: Yes All systems reviewed & no additional complaints except as documented Physical Exam General General appearance: alert and in no apparent distress He
== END 2023-04-06 23:53 | disposition home or self-care (01) ==
LOC: ER 22:08
PROVIDERS: Emergency Provider Emergency Medicine
DX: N39.0 Urinary tract infection, site not specified (principal); T83.32XA Displacement of intrauterine contraceptive device, initial encounter
CPT/HCPCS: 81001; 81025; 87086; 87088; 87186; 99284

== ENCOUNTER 2023-09-19 12:44 | Emergency (ER) | payer OTHER, SELFPAY ==
[2023-09-19 13:15] VITALS: BP 147/69; PULSE 90; RESP 21; TEMP 36.4; O2SAT 96; BMI 47.2
[2023-09-19 13:18] LABS: Apearance,Urine Cloudy (Clear); Bilirubin,Urine Negative (Negative); Blood, Urine 2+ (Negative); Color,Urine Dark Yellow (Yellow); Glucose,Urine (UA) Negative (Negative); Ketones,Urine Negative (Negative); Protein,Urine 1+ (Negative); Specific Gravity, Urine 1.025 (1.005-1.030); UTC Leukocyte Esterase,Urine 2+ (Negative); UTC Nitrate,Urine Positive (Negative); Urobilinogen,Urine 0.2 EU/dl (0.2)
--- NOTE | 2023-09-19 13:36 | ED_ITS ---
Discharge Plan Disposition Patient Disposition: Home, Self-Care Condition: Good Prescriptions Prescriptions: New phenazopyridine [Pyridium] 200 mg tablet 200 mg PO Q8H 2 Days Qty: 6 0RF sulfamethoxazole-trimethoprim [Bactrim DS] 800-160 mg Tablet 1 tab PO BID Qty: 14 0RF No Action citalopram 10 mg tablet 5 mg PO DAILY Rx Instructions: Take 1 tablet by mouth once daily Referrals Follow up/Referrals: Provider,Referral, MD [Primary Care Provider] - See instructions Activity Restrictions/Add. Instructions Additional Instructions/Restrictions: Drink plenty of fluids. Take tylenol or ibuprofen for pain or fever. Take the medications as directed. Follow up with your regular doctor. GO TO THE ER FOR ANY WORSENING SYMPTOMS The pyridium will make your urine turn orange, this is an expected side effect. It will stain your clothes if it comes into contact with them. We will culture the urine. That will tell what bacteria is causing your infection and which antibiotics will treat it best. Sometimes the first antibiotic we prescribe turns out to not work against different bacteria. So, make sure you follow up within 3 days if you are not getting better. Clinical Impressions Clinical Impression: UTI (urinary tract infection) Instructions Patient Instructions: Urine Culture, DI for Urinary Tract Infection (UTI), Phenazopyridine Discharge ED Provider: Pardeep Figueroa [facility] General Stated complaint: poss uti Mode of Arrival: Ambulatory Source of Information: Patient Limitations: No Limitations Time Seen by Provider: 09/19/23 13:36 Description of Symptoms (Recalled from Triage Doc. by RN): PATIENT C/O FEELING UNCOMFORTABLE AND URINARY FREQUENCY X 2 DAYS HEENT Symptoms (Recalled from RN notes): No Resp Symptoms (Recalled from RN notes): No Skin Symptoms (Recalled from RN notes): No MS Symptoms (Recalled from RN notes): No Functional Status (Recalled from RN notes): WNL History of Present Illness Provider Complaint: She states that for the past 2 days she has had low back pain, dysuria, and urinary frequency. Related Data Home Medications Medication Instructions Recorded Confirmed citalopram 10 mg tablet 5 mg PO DAILY PPD 02/09/23 09/19/23 Previous Rx's Medication Instructions Recorded phenazopyridine 200 mg tablet 200 mg PO Q8H 2 days #6 tabs 09/19/23 (Pyridium) sulfamethoxazole 800 1 tab PO BID #14 tabs 09/19/23 mg-trimethoprim 160 mg tablet (Bactrim DS) Allergies Allergy/AdvReac Type Severity Reaction Status Date / Time Fish Containing Products Allergy Severe Hives Verified 04/08/23 14:09 shellfish derived Allergy Mouth Verified 04/08/23 14:09 irritation acetaminophen [From Percocet] AdvReac Gastrointestinal Verified 04/08/23 14:09 Upset escitalopram [From Lexapro] AdvReac Verified 04/08/23 14:09 oxycodone [From Percocet] AdvReac Gastrointestinal Verified 04/08/23 14:09 Upset Worker's Comp Is this a Worker's Comp case?: No [facility] Disclaimer: The information contained in this section may have been updated after the patient was seen, as this information can be updated by other users. Medical History (Updated 09/19/23 @ 13:46 by Pardeep Figueroa APRN) Anxiety Depression History of depression Non-alcoholic fatty liver disease PCOS (polycystic ovarian syndrome) Surgical History (Updated 04/08/23 @ 14:15 by SANDOVAL Rubio) [place] teeth extracted Family History Other Alcoholism Asthma Cancer Coronary artery disease Diabetes FHx: mental illness Heart attack Hyperlipidemia Hypertension Substance abuse Thyroid disorder Social History Smoking Status: Never smoker alcohol intake: never substance use type: denies use current occupational status: employed Travel in the last 8 weeks: None household members: family and children housing: house ROS Obtained: Yes All systems reviewed & no additional complaints except as documented Constitutional Constitutional: Reports system reviewed and no additional complaints, except as documented, Denies chills and Denies fever(s) Eyes Eyes: Denies eye discharge ENT Ears, Nose, Mouth, and Throat: Denies dysphagia, Denies sore throat and Denies throat swelling Cardiovascular Cardiovascular: Denies chest pain and Denies dyspnea Respiratory Respiratory: Denies chest congestion, Denies cough and Denies dyspnea Gastrointestinal Gastrointestingal: Denies abdominal pain, constipation, diarrhea, dysphagia, nausea or vomiting Genitourinary Female Genitourinary: Reports as per HPI, Reports dysuria, Reports urinary frequency, Denies urinary incontinence, Reports urinary hesitancy and Reports urinary urgency Musculoskeletal Musculoskeletal: Denies arthralgias and Reports back pain Integumentary/Breasts Skin/Breast: Denies rash Neurologic Neurologic: Denies paresthesias Allergic/Immunologic Allergic/Immunologic: Denies throat swelling Physical Exam General General appearance: alert and in no apparent distress Head Head exam: atraumatic and normocephalic Eye Eye exam: Present normal appearance, PERRL and EOMI ENT ENT exam: Present normal exam, mucous membranes moist, TM's normal bilaterally and normal external ear exam Neck Neck exam: Present normal inspection, full ROM and trachea midline; Absent tenderness, meningismus or lymphadenopathy Chest Chest inspection: Present normal inspection and symmetric chest wall rise; Absent tenderness Respiratory Respiratory exam: Present normal lung sounds bilaterally; Absent respiratory distress, wheezes or stridor Cardiovascular Cardiovascular exam: Present regular rate, normal rhythm and normal heart sounds Abdominal Exam Abdominal exam: Present soft and normal bowel sounds; Absent distention, tenderness, guarding, rebound, rigidity, incision, psoas sign, obturator sign, heel tap sign, Cary's sign, Rovsing's sign or tenderness at McBurney's Point Extremities Exam Extremities exam: Present normal inspection, full ROM and normal capillary refill; Absent tenderness, edema, joint swelling, calf tenderness or cyanosis Back Exam Back exam: Present normal inspection and full ROM; Absent tenderness, CVA tenderness (R) or CVA tenderness (L) Neurological Exam Neurological exam: Present alert, oriented X3 and normal gait Psychiatric Psychiatric exam: Present normal affect and normal mood Skin Skin exam: Present warm, dry, intact and normal color Lymphatic Lymphatic Findings: no adenopathy Medical Decision Making Medical Records Medical records reviewed: No I reviewed the patient's medical records. [place] Inquiry Pt receiving controlled substance: No Vital Signs: 09/19/23 13:15 Temperature 97.6 F Temperature Source Oral Pulse Rate [Left Brachial] 90 Respiratory Rate 21 Blood Pressure [Left Arm] 147/69 H Blood Pressure Mean [Left Arm] 95 Blood Pressure Source [Left Arm] Automatic Cuff Blood Pressure Position [Left Arm] Sitting 02 Sat by Pulse Oximetry 96 Oxygen Delivery Method Room Air Lab Data Lab results reviewed: Yes I reviewed the patient's lab results. Lab Results 09/19/23 13:10: Urine Color Dark yellow, Urine Appearance Cloudy, Urine pH 6.0, Ur Specific [place] 1.025, Urine Protein 1+, Urine Glucose (UA) Negative, Urine Ketones Negative, Urine Blood 2+, Urine Nitrate Positive A, Urine Bilirubin Negative, Urine Urobilinogen 0.2, Ur Leukocyte Esterase 2+ A Orders (Tests/Meds): ORDERS Category Date Time Status Urine Culture Stat Micro 09/19/23 13:19 Ordered
[2023-09-19 13:46] VITALS: BP 147/69; PULSE 90; RESP 21; TEMP 36.4; O2SAT 96
== END 2023-09-19 13:53 | disposition home or self-care (01) ==
PROVIDERS: Emergency Provider Nurse Practitioner Family
DX: N39.0 Urinary tract infection, site not specified (principal); B96.29 Other Escherichia coli [E. coli] as the cause of diseases classified elsewhere; M54.59 Other low back pain
CPT/HCPCS: 81003; 87086; 99212; 99214; G0463

== ENCOUNTER 2024-09-17 14:40 | Emergency (ER) | payer OTHER, SELFPAY ==
[2024-09-17 16:00] VITALS: BP 123/77; PULSE 76; RESP 17; TEMP 36.7; O2SAT 100; BMI 50.6
[2024-09-17 16:12] LABS: Coronavirus 19, PCR Not Detected (NotDetected); Human Rhinovirus Not Detected (NotDetected); Influenza A, PCR Not Detected (NotDetected); Influenza B, PCR Not Detected (NotDetected); Respiratory Syncytial Virus Not Detected (NotDetected)
--- NOTE | 2024-09-17 17:04 | EXP.UTC ---
Discharge Plan Disposition Patient Disposition: Home, Self-Care Condition: Good Prescriptions Prescriptions: New guaifenesin 400 mg tablet 400 mg PO Q4H PRN (Reason: cough) Qty: 30 1RF cefdinir 300 mg capsule 300 mg PO Q12H 10 Days Qty: 20 0RF No Action citalopram 10 mg tablet 5 mg PO DAILY Rx Instructions: Take 1 tablet by mouth once daily Referrals Follow up/Referrals: Provider,Referral, MD [Primary Care Provider] - See instructions Activity Restrictions/Add. Instructions Additional Instructions/Restrictions: Take medication as prescribed. Increase fluids and rest. Return to clinic/PCP if symptoms persist or worsen. Clinical Impressions Clinical Impression: Acute lower respiratory infection Stand Alone Forms Stand Alone Forms: Work/School Release Instructions Patient Instructions: Acute Bronchitis Print Language Print Language: Arabic Discharge ED Provider: Marge Camara [facility] General Stated complaint: cough, congestion, fever Mode of Arrival: Ambulatory Source of Information: Patient Limitations: No Limitations Time Seen by Provider: 09/17/24 16:45 Description of Symptoms (Recalled from Triage Doc. by RN): PATIENT C/O COUGH, FATIGUE, CONGESTION, HEADACHE, AND FEVER X 6 DAYS HEENT Symptoms (Recalled from RN notes): Yes Resp Symptoms (Recalled from RN notes): Yes Skin Symptoms (Recalled from RN notes): No MS Symptoms (Recalled from RN notes): No Functional Status (Recalled from RN notes): WNL History of Present Illness Provider Complaint: Mom states that she has ran a fever off and on for the past 6 days with the highest being 101. She reports, strong dry cough, runny nose, fatigue, and congestion. She states that she has taken Tylenol for her symtpoms. Related Data Home Medications ?Medication ?Instructions ?Recorded ?Confirmed citalopram 10 mg tablet 5 mg PO DAILY PPD 02/09/23 09/10/24 Previous Rx's ?Medication ?Instructions ?Recorded cefdinir 300 mg capsule 300 mg PO Q12H 10 days #20 caps 09/17/24 guaifenesin 400 mg tablet 400 mg PO Q4H PRN cough #30 tabs 09/17/24 Allergies Allergy/AdvReac Type Severity Reaction Status Date / Time Fish Containing Products Allergy Severe Hives Verified 09/10/24 13:15 shellfish derived Allergy Mouth Verified 09/10/24 13:15 irritation acetaminophen (From Percocet) AdvReac Gastrointestinal Verified 09/10/24 13:15 Upset escitalopram (From Lexapro) AdvReac Verified 09/10/24 13:15 oxycodone (From Percocet) AdvReac Gastrointestinal Verified 09/10/24 13:15 Upset Worker's Comp Is this a Worker's Comp case?: No [facility] Disclaimer: The information contained in this section may have been updated after the patient was seen, as this information can be updated by other users. Medical History History of depression Depression Anxiety PCOS (polycystic ovarian syndrome) Non-alcoholic fatty liver disease Surgical History [place] teeth extracted Family History Other Alcoholism Asthma Cancer Coronary artery disease Diabetes FHx: mental illness Heart attack Hyperlipidemia Hypertension Substance abuse Thyroid disorder Social History Smoking Status: Never smoker alcohol intake: never substance use type: denies use current occupational status: employed Travel in the last 8 weeks: None household members: family and children housing: house Have you lived/traveled outside [place] in past 30 days?: No Contact w/someone who lives/traveled outside [place] past 30 days?: No Exposure to someone with infectious disease in past 14 days?: No Do you have a fever (greater than 100.4 F or 38 C)?: Yes Have you tested positive for COVID-19: No Exposed to someone with COVID-19 in past 14 days?: No Do you have a sore throat?: Yes Do you have a cough?: Yes Do you have any weakness?: No Do you have any diarrhea?: No Are you experiencing any unusual bleeding?: No Do you have any muscle aches/pain?: Yes Do you have any abdominal pain?: No Are you experiencing loss of taste or smell?: No ROS Obtained: Yes All systems reviewed & no additional complaints except as documented Constitutional Constitutional: Reports system reviewed and no additional complaints, except as documented, Reports fatigue, Reports fever(s), Reports headache(s) and Reports malaise Eyes Eyes: Reports system reviewed and no additional complaints, except as documented ENT Ears, Nose, Mouth, and Throat: Reports system reviewed and no additional complaints, except as documented, Reports as per HPI, Reports headache(s), Reports nasal congestion and Reports nasal discharge Cardiovascular Cardiovascular: Reports system reviewed and no additional complaints, except as documented Respiratory Respiratory: Reports system reviewed and no additional complaints, except as documented and Reports non-productive cough Gastrointestinal Gastrointestingal: Reports system reviewed and no additional complaints, except as documented Genitourinary Female Genitourinary: Reports system reviewed and no additional complaints, except as documented Musculoskeletal Musculoskeletal: Reports system reviewed and no additional complaints, except as documented Integumentary/Breasts Skin/Breast: Reports system reviewed and no additional complaints, except as documented Neurologic Neurologic: Reports system reviewed and no additional complaints, except as documented and Reports headache(s) Endocrine Endocrine: Reports system reviewed and no additional complaints, except as documented and Reports fatigue Hematologic/Lymphatic Henatologic/Lymphatic: Reports system reviewed and no additional complaints, except as documented Allergic/Immunologic Allergic/Immunologic: Reports system reviewed and no additional complaints, except as documented Physical Exam General General appearance: alert Comment: ill appearig Head Head exam: atraumatic and normocephalic Eye Eye exam: Present normal appearance ENT ENT exam: Present mucous membranes moist Expanded ENT Exam External ear exam: Present normal external inspection Nasal speculum exam: Bilateral: other (clear drainage) Mouth exam: Present normal external inspection Teeth exam: Present normal inspection Throat exam: Present normal inspection Neck Neck exam: Present normal inspection; Absent lymphadenopathy Chest Chest inspection: Present normal inspection and symmetric chest wall rise Respiratory Respiratory exam: Present other (course sounds throughout) Cardiovascular Cardiovascular exam: Present regular rate and normal rhythm Abdominal Exam Abdominal exam: Present soft Extremities Exam Extremities exam: Present normal inspection Back Exam Back exam: Present normal inspection Neurological Exam Neurological exam: Present alert and oriented X3 Psychiatric Psychiatric exam: Present normal affect and normal mood Skin Skin exam: Present warm, dry and intact Lymphatic Lymphatic Findings: no adenopathy Medical Decision Making Medical Records Screening: Per USPSTF and CDC recommendations, given the prevalence of disease in our region, it is our hospital?s policy to screen for HIV and viral Hepatitis for all patients aged 18 and over and those with ongoing risk factors. [place] Inquiry Pt receiving controlled substance: No [place] was queried for this patient: No Vital Signs: 09/17/24 16:00 Temperature 98.1 F Temperature Source Oral Pulse Rate [Right] 76 Respiratory Rate 17 Blood Pressure [Right Arm] 123/77 Blood Pressure Mean [Right Arm] 92 Blood Pressure Source [Right Arm] Automatic Cuff Blood Pressure Position [Right Arm] Sitting 02 Sat by Pulse Oximetry 100 Oxygen Delivery Method Room Air Orders (Tests/Meds): ORDERS Category Date Time Status Mini Respiratory Panel Stat Lab 09/17/24 15:56 Received
[2024-09-17 17:06] VITALS: BP 123/77; PULSE 76; RESP 17; TEMP 36.7; O2SAT 100
== END 2024-09-17 17:17 | disposition home or self-care (01) ==
PROVIDERS: Emergency Provider Nurse Practitioner Family
DX: J06.9 Acute upper respiratory infection, unspecified (principal); R50.9 Fever, unspecified; R05.9 Cough, unspecified; R09.81 Nasal congestion; R51.9 Headache, unspecified
CPT/HCPCS: 87631; 99212; G0381